=== PATIENT | female | born 1935 ===

== ENCOUNTER 2018-11-18 17:58 | Emergency (ER) | payer MEDICARE, OTHER ==
[2018-11-18 18:07] VITALS: BP 126/74; PULSE 86; RESP 18; TEMP 98.4; O2SAT 100
--- NOTE | 2018-11-18 18:40 | C.PDOC ---
History Of Present Illness 83 y/o female presents to the ER complaining of right ear pain which has been present for the past 4 days. Patient rates the pain 8/10. Patient reports that she went to her PMD and he prescribed her Ciprodex ear drops. She notes that she used the ear drops x 1 today. She states that she still has pain which is constant and throbbing.Denies having fever,chills,headache,dizziness,sore throat, neck pain, neck stiffness, CP, and SOB. Time Seen by Provider: 11/18/18 18:19 Chief Complaint (Nursing): ENT Problem History Per: Patient History/Exam Limitations: no limitations Onset/Duration Of Symptoms: Days Current Symptoms Are (Timing): Still Present Severity: Moderate Past Medical History Reviewed: Historical Data, Nursing Documentation, Vital Signs Vital Signs: Last Vital Signs Temp 98.4 F 11/18/18 18:04 Pulse 86 11/18/18 18:04 Resp 18 11/18/18 18:04 BP 126/74 11/18/18 18:04 Pulse Ox 100 11/18/18 18:04 - Medical History PMH: Asthma, Diabetes Surgical History: Cholecystectomy Family History: States: No Known Family Hx - Social History Hx Tobacco Use: No Hx Alcohol Use: No Hx Substance Use: No - Immunization History Hx Tetanus Toxoid Vaccination: Yes Hx Influenza Vaccination: Yes Hx Pneumococcal Vaccination: (not sure) Review Of Systems Except As Marked, All Systems Reviewed And Found Negative. Constitutional: Negative for: Fever, Chills ENT: Positive for: Ear Pain (right ear pain). Negative for: Throat Pain Cardiovascular: Negative for: Chest Pain Respiratory: Negative for: Shortness of Breath Musculoskeletal: Negative for: Neck Pain Neurological: Negative for: Headache Physical Exam - Physical Exam Appears: Non-toxic, No Acute Distress Skin: Normal Color, Warm, Dry Head: Atraumatic, Normacephalic Eye(s): bilateral: Normal Inspection Ear(s): Left: Normal, Right: Other (canal inflamed,external ear is not visible, no periauricular and/or postauricular tenderness ) Nose: Normal Oral Mucosa: Moist Throat: Normal, No Erythema, No Exudate Neck: Supple Chest: Symmetrical Cardiovascular: Rhythm Regular Respiratory: Normal Breath Sounds, No Rales, No Rhonchi, No Wheezing Neurological/Psych: Oriented x3, Normal Speech ED Course And Treatment O2 Sat by Pulse Oximetry: 100 (RA) Pulse Ox Interpretation: Normal Medical Decision Making Medical Decision Making: Plan: --Motrin PO Disposition Counseled Patient/Family Regarding: Need For Followup, Rx Given - Disposition Referrals: Harrison Hardin MD [Staff Provider] - Disposition: HOME/ ROUTINE Disposition Time: 18:37 Condition: GUARDED Prescriptions: Azithromycin 250 mg PO DAILY #6 tablet Ibuprofen [Motrin] 400 mg PO TID #24 tab traMADol [Ultram] 25 mg PO BID #8 tab Instructions: Outer Ear Infection (DC) Forms: [employer] ([place]) - POA Present On Arrival: None - Clinical Impression Clinical Impression: Otitis externa - Scribe Statement The provider has reviewed the documentation as recorded by the Scribe Karen Reddy Provider Attestation: All medical record entries made by the Scribe were at my direction and personally dictated by me. I have reviewed the chart and agree that the record accurately reflects my personal performance of the history, physical exam, medical decision making, and the department course for this patient. I have also personally directed, reviewed, and agree with the discharge instructions and disposition.
== END 2018-11-18 19:05 | disposition home or self-care (01) ==
LOC: C.ER 17:58
DX: H60.91 Unspecified otitis externa, right ear (principal)

== ENCOUNTER 2018-11-20 23:17 | Inpatient (IN) | payer MEDICARE, OTHER | END 2018-11-26 16:55 | disposition home or self-care (01) | DRG 153 | LOC: C.ER 23:17 → C.6T 11-21 02:15 | DX: H70.001 Acute mastoiditis without complications, right ear (principal); E78.5 Hyperlipidemia, unspecified; E11.9 Type 2 diabetes mellitus without complications; H91.90 Unspecified hearing loss, unspecified ear; I10 Essential (primary) hypertension; J45.909 Unspecified asthma, uncomplicated; L40.9 Psoriasis, unspecified; K21.9 Gastro-esophageal reflux disease without esophagitis; H60.20 Malignant otitis externa, unspecified ear ==

== ENCOUNTER 2018-12-23 10:20 | Inpatient (IN) | payer MEDICARE, OTHER | END 2018-12-26 18:45 | disposition home or self-care (01) | LOC: C.ER 10:20 → C.9E 12:45 → C.3T 13:01 ==

== ENCOUNTER 2018-12-31 09:50 | Inpatient (IN) | payer MEDICARE, OTHER ==
--- NOTE | 2018-12-31 10:29 | C.PDOC ---
History Of Present Illness Patient is a 83 year old female who presents to the ED with her family for evaluation of a swollen and red right arm for the past 2 days after a PICC line was inserted last week for IV antibiotics for Otitis Externa. Patient's PMD is . Denies any fever or chills. Time Seen by Provider: 12/31/18 10:25 Chief Complaint (Nursing): Upper Extremity Problem/Injury History Per: Patient, Family History/Exam Limitations: no limitations Current Symptoms Are (Timing): Still Present Severity: Mild Recent travel outside of the [place]: No Additional History Per: Patient Past Medical History Reviewed: Historical Data, Nursing Documentation, Vital Signs Vital Signs: Last Vital Signs Temp 97.6 F 12/31/18 09:55 Pulse 107 H 12/31/18 09:55 Resp 18 12/31/18 09:55 BP 129/74 12/31/18 09:55 Pulse Ox 99 12/31/18 09:55 Primary Care Provider: Harrison Hardin - Medical History PMH: Anxiety, Asthma, Diabetes, HTN Denies: Deep Vein Thrombosis Surgical History: Cholecystectomy Denies: Pacemaker - [facility] Procedures EXCISION OF RIGHT EXTERNAL AUDITORY CANAL, ENDO, DIAGN (12/24/18) INSERTION OF INFUSION DEV INTO SUP VENA CAVA, PERC APPROACH (12/24/18) Family History: States: Unknown Family Hx - Social History Hx Tobacco Use: No Hx Alcohol Use: No Hx Substance Use: No - Immunization History Hx Tetanus Toxoid Vaccination: Yes Hx Influenza Vaccination: Yes Hx Pneumococcal Vaccination: (not sure) Review Of Systems Constitutional: Negative for: Fever, Chills Musculoskeletal: Positive for: Arm Pain (right arm swollen and red) Physical Exam - Physical Exam Appears: Non-toxic, No Acute Distress Skin: Warm, Dry Head: Atraumatic, Normacephalic Eye(s): bilateral: Normal Inspection Oral Mucosa: Moist Neck: Normal ROM, Supple Chest: Symmetrical, No Deformity Cardiovascular: Rhythm Regular, No Murmur Respiratory: Normal Breath Sounds, No Rales, No Rhonchi, No Wheezing Gastrointestinal/Abdominal: Soft, No Tenderness Extremity: Swelling (right upper arm swollen and erythematous ) Pulses: Left Radial: Normal, Right Radial: Normal Gait: Steady ED Course And Treatment - Laboratory Results Result Diagrams: 12/31/18 11:12 05/29/19 11:12 Lab Interpretation: No Acute Changes ECG: Interpreted By Me ECG Rhythm: Sinus Rhythm ECG Interpretation: Normal Rate From EC O2 Sat by Pulse Oximetry: 99 (on RA) Pulse Ox Interpretation: Normal - Radiology CXR: Interpreted by Me CXR Interpretation: Yes: No Acute Disease - Other Rad CXR X-Ray: Viewed By Me, Read By Radiologist Interpretation: Chest x-ray two views. HISTORY: Shortness of breath. Comparison: 08/20/2013. Findings: Mild linear atelectasis at the left lung base. Right PICC line with tip extending to the mid right SVC. Biapical pleural thickening with upper lobe granulomatous changes. No gross focal infiltrate or effusion. Atherosclerotic calcification at the aortic knob. Surgical clips in the upper abdomen. Degenerative changes in the spine and shoulders. Impression: Mild linear atelectasis at the left lung base. Right PICC line with tip extending to the mid right SVC. Biapical pleural thickening with upper lobe granulomatous changes. No gross focal infiltrate or effusion. Atherosclerotic calcification at the aortic knob. Surgical clips in the upper abdomen. Progress Note: Doppler right Upper arm (+) DVT. Case discussed with Dr Hardin and agrees with admission and Heparin. PICC line removed Reassessment Condition: Unchanged - Physician Consult Information Physician Contacted: Harrison Hardin Outcome Of Conversation: admit Medical Decision Making Medical Decision Making: Plan: CXR EKG Labs Blood Culture Duplex Scan UA Spoke to PICC nurse who states the PICC line should come out. Disposition Discussed With .: Harrison Hardin Doctor Will See Patient In The: Hospital - Disposition Disposition: HOSPITALIZED Disposition Time: 15:00 Condition: GOOD - POA Present On Arrival: None - Clinical Impression Clinical Impression: Cellulitis, DVT of axillary vein, acute - PA / ANIMAL RIDE ATTENDANT / Resident Statement MD/DO has reviewed & agrees with the documentation as recorded. - Scribe Statement The provider has reviewed the documentation as recorded by the Shara Fenton All medical record entries made by the Shara were at my direction and personally dictated by me. I have reviewed the chart and agree that the record accurately reflects my personal performance of the history, physical exam, medical decision making, and the department course for this patient. I have also personally directed, reviewed, and agree with the discharge instructions and disposition. Decision To Admit - Pt Status Changed To: Hospital Disposition Of: Inpatient - Admit Certification Admit to Inpatient:: After my assessment, the patient will require hospitalization for at least two midnights. This is because of the severity of symptoms shown, intensity of services needed, and/or the medical risk in this patient being treated as an outpatient. - InPatient: Physician Admission Certification: I certify that this patient requires 2 or more midnights of care for the following reason:: DVT right arm - . Bed Request Type: Regular Admitting Physician: Harrison Hardin Patient Diagnosis: Cellulitis, DVT of axillary vein, acute
--- NOTE | 2018-12-31 11:15 | RAD ---
Chest x-ray two views HISTORY: Shortness of breath. Comparison: 08/20/2013 Findings: Mild linear atelectasis at the left lung base. Right PICC line with tip extending to the mid right SVC. Biapical pleural thickening with upper lobe granulomatous changes. No gross focal infiltrate or effusion. Atherosclerotic calcification at the aortic knob. Surgical clips in the upper abdomen. Degenerative changes in the spine and shoulders. Impression: Mild linear atelectasis at the left lung base. Right PICC line with tip extending to the mid right SVC. Biapical pleural thickening with upper lobe granulomatous changes. No gross focal infiltrate or effusion. Atherosclerotic calcification at the aortic knob. Surgical clips in the upper abdomen.
[2018-12-31 11:27] LABS: BASO % 0.3 % (0.0-2.0); HEMOGLOBIN 12.3 g/dL (11.0-16.0); LYMPH # 0.8 K/uL (1.0-4.3); LYMPH % 13.3 % (20.0-40.0); MEAN CELL VOLUME 85.5 fL (81.0-99.0); MEAN CORPUSCULAR HEMOGLOBIN 28.4 pg (27.0-31.0); MEAN CORPUSCULAR HGB CONC 33.3 g/dL (33.0-37.0); MONO # 0.6 K/uL (0.0-0.8); MONO % 9.9 % (0.0-10.0); NEUT # 4.4 K/uL (1.8-7.0); NEUT % 76.5 % (50.0-75.0); NRBC % 0.1 % (0.0-2.0); RBC 4.33 Mil/uL (3.80-5.20); RED CELL DISTRIBUTION WIDTH 15.5 % (11.5-14.5); WHITE BLOOD COUNT 5.8 K/uL (4.8-10.8)
[2018-12-31] MEDS ORDERED: Heparin25000 units/250ml 1/2NS 25,000 UNITS/250 ML BAG IV STA ×3 (11:33→13:10)
[2018-12-31 12:11] LABS: ALB/GLOB RATIO 1.2 (1.0-2.1); ALBUMIN 4.1 g/dL (3.5-5.0); ALT/SGPT 14 U/L (9-52); AST/SGOT 27 U/L (14-36); BLOOD UREA NITROGEN 19 mg/dL (7-17); CALCIUM 9.8 mg/dl (8.6-10.4); GFR NON-AFRICAN AMERICAN > 60
[2018-12-31] MEDS ORDERED: Dextrose 50% SYRINGE Inj (50 ml) IV PRN (14:53)
[2018-12-31] MEDS ORDERED: Cefepime (Maxipime) 1 g Inj IVPB SCH (15:00)
[2018-12-31 15:28] LABS: INR 1.1; PROTHROMBIN TIME 12.5 SECONDS (9.7-12.2)
[2018-12-31] MEDS ORDERED: Glucagon Recombinant 1 mg Inj IM PRN (15:38)
[2018-12-31 15:40] LABS: PARTIAL THROMBOPLASTIN TIME > 400.0 SECONDS (21-34)
--- NOTE | 2018-12-31 15:44 | VASCLAB ---
Date of service: 12/31/2018 PROCEDURE: Upper Extremity Venous Duplex Exam HISTORY: Edema, Right arm swelling. PRIORS: None. TECHNIQUE: Bilateral upper extremity, internal jugular, subclavian, axillary, brachial, ulnar, radial, basilic and upper cephalic veins were evaluated. Flow was assessed with color Doppler, compressibility, assessment of phasic flow and augmentation response. Report prepared by MITUL Gann FINDINGS: RIGHT: 1. Internal Jugular: 1.1. Compressibility - Fully compressible: Thrombus - None : Flow - Phasic: Augmentation -Normal: Reflux - None. 2. Subclavian: 2.1. Compressibility - Incompressible: Thrombus - Acute : Flow - Absent 3. Axillary: 3.1. Compressibility - Partial: Thrombus - Acute : Flow - Reduced 4. Brachial: 4.1. Unable to examine w/PICC line and dressing. 5. Ulnar: 5.1. Compressibility - Fully compressible: Thrombus - None: Flow - Phasic: Augmentation -Normal: Reflux - None. 6. Radial: 6.1. Compressibility - Fully compressible: Thrombus - None: Flow - Phasic: Augmentation - Normal: Reflux - None. 7. Cephalic: 7.1. Compressibility - Incompressible: Thrombus - Acute: Flow - Absent (upper arm) 8. Basilic: (forearm) 8.1. Compressibility - Fully compressible: Thrombus - None: Flow - Phasic: Augmentation -Normal: Reflux - None. LEFT: 1. Internal Jugular: 1.1. The left IJV is not identified. 2. Subclavian: 2.1. Compressibility - Fully compressible: Thrombus - None : Flow - Phasic: Augmentation -Normal: Reflux - None. 3. Axillary: 3.1. Compressibility - Fully compressible: Thrombus - None : Flow - Phasic: Augmentation -Normal: Reflux - None. 4. Brachial: 4.1. Compressibility - Fully compressible: Thrombus - None: Flow - Phasic: Augmentation -Normal: Reflux - None. 5. Ulnar: 5.1. Compressibility - Fully compressible: Thrombus - None: Flow - Phasic: Augmentation -Normal: Reflux - None. 6. Radial: 6.1. Compressibility - Fully compressible: Thrombus - None: Flow - Phasic: Augmentation - Normal: Reflux - None. 7. Cephalic: 7.1. Compressibility - Fully compressible: Thrombus - None: Flow - Phasic: Augmentation -Normal: Reflux - None. 8. Basilic: 8.1. Compressibility - Fully compressible: Thrombus - None: Flow - Phasic: Augmentation -Normal: Reflux - None. OTHER FINDINGS: Right: Acute thrombus formation surrounding the piccline in the subclavian and axillary veins. Non compressible right upper cephalic vein, however compressible in the forearm. Findings were reported to INES Maloney in the E. [facility] at 11:30 a.m. IMPRESSION: Right: Acute deep vein thrombosis of the right subclavian and axillary veins. Superficial phlebitis of the right upper arm cephalic vein. Left: No evidence of vein thrombosis of the left upper extremity with excellent venous flow, as visualized.
[2018-12-31] MEDS: Cefepime IV 1 gm in Dextrose 1 GM/50 ML BAG IVPB SCH (16:26)
[2018-12-31] MEDS: (Novolog) Insulin Aspart, Recombinant 100 u/ml 10 ml vial SC SCH ×2 (17:12→22:04)
[2018-12-31] MEDS: Oxycodone/Acetaminophen 5/325 mg Tab PO SCH (17:16)
[2018-12-31] MEDS ORDERED: Budesonide 0.25 mg/2 ml Inhal Susp UD INH SCH (20:00)
[2018-12-31] MEDS: Rosuvastatin Calcium 2.5 mg Tab PO SCH (21:03)
--- NOTE | 2018-12-31 22:32 | CP.PCM.HP ---
Present on Admission - Present on Admission Any Indicators Present on Admission: Yes History of DVT/PE: No History of Uncontrolled Diabetes: Yes Past Patient History - Infectious Disease Hx of Infectious Diseases: None - Past Medical History & Family History Past Medical History?: Yes - Past Social History Smoking Status: Never Smoked - CARDIAC Hx Hypertension: Yes Hx Pacemaker: No - PULMONARY Hx Asthma: Yes - ENDOCRINE/METABOLIC Hx Diabetes Mellitus Type 2: Yes - HEMATOLOGICAL/ONCOLOGICAL Hx Cancer: Yes - MUSCULOSKELETAL/RHEUMATOLOGICAL Hx Falls: No - PSYCHIATRIC Hx Anxiety: Yes Hx Substance Use: No - SURGICAL HISTORY Hx Cholecystectomy: Yes - ANESTHESIA Hx Anesthesia: Yes Hx Anesthesia Reactions: No Hx Malignant Hyperthermia: No Meds Allergies/Adverse Reactions: Allergies Allergy/AdvReac Type Severity Reaction Status Date / Time FISH Allergy RASH Verified 12/23/18 10:52 iodine Allergy RASH Verified 12/23/18 10:52 Sulfa (Sulfonamide Allergy RASH Verified 12/23/18 10:52 Antibiotics) Results - Vital Signs Recent Vital Signs: Last Vital Signs Temp 98.6 F 12/31/18 16:47 Pulse 94 H 12/31/18 16:47 Resp 20 12/31/18 16:47 BP 121/71 12/31/18 16:47 Pulse Ox 94 L 12/31/18 16:47 - Labs Result Diagrams: 12/31/18 11:12 12/31/18 11:12 Labs: Laboratory Results - last 24 hr 12/31/18 12/31/18 12/31/18 11:12 11:12 13:30 WBC 5.8 D RBC 4.33 Hgb 12.3 Hct 37.0 MCV 85.5 MCH 28.4 MCHC 33.3 RDW 15.5 H Plt Count 57 L MPV 11.0 Neut % (Auto) 76.5 H Lymph % (Auto) 13.3 L Bradley % (Auto) 9.9 Eos % (Auto) 0.0 Baso % (Auto) 0.3 Neut # (Auto) 4.4 Lymph # (Auto) 0.8 L Bradley # (Auto) 0.6 Eos # (Auto) 0.0 Baso # (Auto) 0.0 ESR 73 H PT INR APTT Sodium 135 Potassium 4.4 Chloride 104 Carbon Dioxide 21 L Anion Gap 15 BUN 19 H Creatinine 0.6 L Est GFR ( Amer) > 60 Est GFR (Non-Af Amer) > 60 POC Glucose (mg/dL) 100 Random Glucose 195 H D Calcium 9.8 Total Bilirubin 0.9 AST 27 ALT 14 Alkaline Phosphatase 41 Total Protein 7.6 Albumin 4.1 Globulin 3.4 Albumin/Globulin Ratio 1.2 12/31/18 12/31/18 12/31/18 15:04 16:57 17:35 WBC RBC Hgb Hct MCV MCH MCHC RDW Plt Count MPV Neut % (Auto) Lymph % (Auto) Bradley % (Auto) Eos % (Auto) Baso % (Auto) Neut # (Auto) Lymph # (Auto) Bradley # (Auto) Eos # (Auto) Baso # (Auto) ESR PT 12.5 H INR 1.1 APTT > 400.0 H* 105.2 H* D Sodium Potassium Chloride Carbon Dioxide Anion Gap BUN Creatinine Est GFR ( Amer) Est GFR (Non-Af Amer) POC Glucose (mg/dL) 142 H Random Glucose Calcium Total Bilirubin AST ALT Alkaline Phosphatase Total Protein Albumin Globulin Albumin/Globulin Ratio 12/31/18 21:18 WBC RBC Hgb Hct MCV MCH MCHC RDW Plt Count MPV Neut % (Auto) Lymph % (Auto) Bradley % (Auto) Eos % (Auto) Baso % (Auto) Neut # (Auto) Lymph # (Auto) Bradley # (Auto) Eos # (Auto) Baso # (Auto) ESR PT INR APTT Sodium Potassium Chloride Carbon Dioxide Anion Gap BUN Creatinine Est GFR ( Amer) Est GFR (Non-Af Amer) POC Glucose (mg/dL) 213 H Random Glucose Calcium Total Bilirubin AST ALT Alkaline Phosphatase Total Protein Albumin Globulin Albumin/Globulin Ratio
[2019-01-01] MEDS: Oxycodone/Acetaminophen 5/325 mg Tab PO SCH ×5 (00:43→23:39)
[2019-01-01] MEDS: Cefepime IV 1 gm in Dextrose 1 GM/50 ML BAG IVPB SCH ×2 (03:47→16:55)
--- NOTE | 2019-01-01 06:25 | HP ---
CHIEF COMPLAINT: Right upper extremity pain, swelling x2 days. HISTORY OF PRESENT ILLNESS: This is an 83-year-old female, well known to me with history of malignant otitis externa. She is on long-term antibiotics for 6 weeks with Infectious Disease; and on the day of admission, she came to the emergency room because she had a PICC line done 3 days ago in the hospital. After that, she was discharged. After that, she developed swelling of right upper extremity. Her right upper extremity is therefore swollen and warm, and the patient came to the emergency room. The patient denies any trauma. She denies any history of mechanical manipulation of the PICC line. The PICC line was in the right upper extremity. She denies any fever, chills, or rigors. She denies any redness or swelling. She denies any fever. She denies any polyuria, polydipsia, or polyphagia. She denies any history of hematuria or polyuria. She denies any sneezing, itchy eyes, or itchy nose. There is no history of cough, sore throat, or runny nose. There is no history of trauma, fall, loss of consciousness. PAST MEDICAL HISTORY: Malignant otitis externa, type 2 diabetes, hypertension, and hyperlipidemia. SOCIAL HISTORY: Nonsmoker, non-ETOH user. MEDICATIONS: Current medications at home are Percocet, Merrem, Pravachol, lisinopril, Janumet, Amaryl, Advair, Nexium, Jardiance. PHYSICAL EXAMINATION: GENERAL: An elderly female, in no acute distress, in mild pain in the right upper extremity. VITAL SIGNS: Blood pressure 156/80, pulse 80, respiratory rate 20, temperature 98. SKIN: The patient has dry, cold skin in the right upper extremity with no bruises, no purpura. HEENT: Atraumatic, normocephalic. Negative pallor. Negative jaundice. Extraocular movements are intact. NECK: Supple. No JVD. No lymph node. No thyromegaly. No carotid bruit. CHEST WALL: Bilateral symmetrical expansion. No tenderness. No deformity. BREASTS: No masses, no discharge. LUNGS: Bilaterally clear. No rales. No rhonchi. CARDIOVASCULAR SYSTEM: S1, S2 regular. No heave. No thrill. ABDOMEN: Soft, nontender. Bowel sounds are positive. RECTAL: No masses. No bleed. EXTREMITIES: No clubbing, cyanosis, or edema. Right upper extremity, as above. CENTRAL NERVOUS SYSTEM: Awake, alert, oriented x3. Cranial nerves II through XII are normal. Power 5/5 x4. Plantars are downgoing. ASSESSMENT: 1. Deep venous thrombosis of the right upper extremity due to peripherally inserted central catheter line. Discontinue PICC line and start the patient on Xarelto after the patient was given heparin. 2. Type 2 diabetes. 3. Hypertension. 4. Malignant otitis externa. PLAN: Continue antibiotics, continue Xarelto, medical management. Monitor the patient. Harrison Hardin MD
[2019-01-01] MEDS: (Novolog) Insulin Aspart, Recombinant 100 u/ml 10 ml vial SC SCH ×4 (07:31→21:31)
[2019-01-01] MEDS: Arformoterol 15 mcg/2 ml Inh Sol INH SCH ×2 (09:07→19:53)
[2019-01-01] MEDS: Saccharomyces Boulardi 250 mg Cap PO SCH (09:55)
[2019-01-01] MEDS: Rosuvastatin Calcium 2.5 mg Tab PO SCH (21:08)
--- NOTE | 2019-01-01 22:45 | CP.PCM.PN ---
Subjective - Date & Time of Evaluation Date of Evaluation: 01/01/19 Time of Evaluation: 09:40 - Subjective Subjective: dict Objective - Vital Signs/Intake and Output Vital Signs (last 24 hours): Temp Pulse Resp BP Pulse Ox 98.0 F 93 H 20 113/69 96 01/01/19 07:00 01/01/19 07:00 01/01/19 07:00 01/01/19 07:00 01/01/19 07:00 Intake and Output: 01/01/19 01/02/19 18:59 06:59 Intake Total 500 Balance 500 - Medications Medications: Current Medications Arformoterol Tartrate (Brovana) 15 mcg INH RQ12@1000,2200 [facility] Last Admin: 01/01/19 19:53 Dose: 15 mcg Budesonide (Pulmicort Respules) 0.25 mg INH RQ12 [facility] Dextrose (Dextrose 50% Inj) 0 ml IV STAT PRN; Protocol PRN Reason: Hypoglycemia Protocol Dextrose (Glutose 15) 0 gm PO ONCE PRN; Protocol PRN Reason: Hypoglycemia Protocol Glimepiride (Amaryl) 2 mg PO BIDBS [facility] Last Admin: 01/01/19 16:55 Dose: 2 mg Glucagon (Glucagen Diagnostic Kit) 0 mg IM STAT PRN; Protocol PRN Reason: Hypoglycemia Protocol Dextrose (Dextrose 5% In Water 1000 Ml) 1,000 mls @ 0 mls/hr IV .Q0M PRN; Protocol PRN Reason: Hypoglycemia Protocol Cefepime HCl (Maxipime Iv 1 Gm Premix) 1 gm in 50 mls @ 100 mls/hr IVPB Q12H [facility] Last Admin: 01/01/19 16:55 Dose: 100 mls/hr Insulin Aspart (Novolog) 0 unit SC ACHS [facility]; Protocol Last Admin: 01/01/19 21:31 Dose: Not Given Lisinopril (Zestril) 5 mg PO DAILY [facility] Last Admin: 01/01/19 09:55 Dose: 5 mg Metformin HCl (Glucophage) 500 mg PO BIDCC [facility] Last Admin: 01/01/19 16:55 Dose: 500 mg Oxycodone/Acetaminophen (Percocet 5/325 Mg Tab) 1 tab PO Q6 [facility] Stop: 01/03/19 18:01 Last Admin: 01/01/19 17:13 Dose: Not Given Rivaroxaban (Xarelto) 15 mg PO BID [facility] Last Admin: 01/01/19 17:12 Dose: 15 mg Rosuvastatin Calcium (Crestor) 2.5 mg PO HS [facility] Last Admin: 01/01/19 21:08 Dose: 2.5 mg Saccharomyces Boulardii (Florastor) 250 mg PO DAILY [facility] Last Admin: 01/01/19 09:55 Dose: 250 mg Sitagliptin Phosphate (Januvia) 50 mg PO BID [facility] Last Admin: 01/01/19 17:12 Dose: 50 mg - Labs Labs: 12/31/18 11:12 12/31/18 11:12 PT 12.5 SECONDS (9.7-12.2) H 12/31/18 15:04 INR 1.1 12/31/18 15:04 APTT 105.2 SECONDS (21-34) H* D 12/31/18 17:35
--- NOTE | 2019-01-02 02:02 | PN ---
DATE: 01/01/2019 SUBJECTIVE: The patient is on Xarelto. She is tolerating well. No fever. No chills. PHYSICAL EXAMINATION: VITAL SIGNS: Blood pressure 113/69, pulse 93, respiratory rate 20, and temperature 98. LUNGS: Clear. CARDIOVASCULAR SYSTEM: S1 and S2, regular. ABDOMEN: Soft. ASSESSMENT: 1. Malignant otitis externa. 2. Deep venous thrombosis, right upper extremity. 3. Hypertension. 4. Diabetes. PLAN: The patient's biopsy is inconclusive as I speak to ENT. The patient might need empiric antibiotic therapy. Monitor the patient. Harrison Hardin MD
[2019-01-02] MEDS: Cefepime IV 1 gm in Dextrose 1 GM/50 ML BAG IVPB SCH ×2 (03:37→15:59)
[2019-01-02] MEDS: Oxycodone/Acetaminophen 5/325 mg Tab PO SCH ×3 (05:40→17:59)
[2019-01-02] MEDS: (Novolog) Insulin Aspart, Recombinant 100 u/ml 10 ml vial SC SCH ×4 (07:28→22:20)
[2019-01-02 08:48] LABS: SQUAMOUS EPITHIAL 4 /hpf (0-5); URINE BACTERIA OCC (<OCC); URINE BILIRUBIN NEGATIVE (NEGATIVE); URINE BLOOD 1+ (NEGATIVE); URINE CLARITY Hazy (Clear); URINE COLOR Yellow (YELLOW); URINE GLUCOSE (UA) 3+ mg/dL (Normal); URINE LEUKOCYTE ESTERASE 1+ Leu/uL (Negative); URINE PROTEIN NEGATIVE (NEGATIVE); URINE UROBILINOGEN NORMAL mg/dL (0.2-1.0)
[2019-01-02] MEDS: Arformoterol 15 mcg/2 ml Inh Sol INH SCH ×2 (09:08→19:44)
[2019-01-02] MEDS: Saccharomyces Boulardi 250 mg Cap PO SCH (09:32)
[2019-01-02 17:58] VITALS: RESP 20
[2019-01-02] MEDS: Rosuvastatin Calcium 2.5 mg Tab PO SCH (21:18)
[2019-01-03] MEDS: Oxycodone/Acetaminophen 5/325 mg Tab PO SCH ×4 (00:53→17:55)
--- NOTE | 2019-01-03 04:43 | CP.PCM.PN ---
Subjective - Date & Time of Evaluation Date of Evaluation: 01/02/19 Time of Evaluation: 08:30 - Subjective Subjective: dict Objective - Vital Signs/Intake and Output Vital Signs (last 24 hours): Temp Pulse Resp BP Pulse Ox 98.0 F 87 20 123/68 99 01/03/19 00:00 01/03/19 00:00 01/03/19 00:00 01/03/19 00:00 01/03/19 00:00 Intake and Output: 01/02/19 01/03/19 18:59 06:59 Intake Total 500 Balance 500 - Medications Medications: Current Medications Arformoterol Tartrate (Brovana) 15 mcg INH RQ12@1000,2200 [facility] Last Admin: 01/02/19 19:44 Dose: 15 mcg Budesonide (Pulmicort Respules) 0.25 mg INH RQ12 [facility] Dextrose (Dextrose 50% Inj) 0 ml IV STAT PRN; Protocol PRN Reason: Hypoglycemia Protocol Dextrose (Glutose 15) 0 gm PO ONCE PRN; Protocol PRN Reason: Hypoglycemia Protocol Glimepiride (Amaryl) 2 mg PO BIDBS [facility] Last Admin: 01/02/19 17:10 Dose: 2 mg Glucagon (Glucagen Diagnostic Kit) 0 mg IM STAT PRN; Protocol PRN Reason: Hypoglycemia Protocol Dextrose (Dextrose 5% In Water 1000 Ml) 1,000 mls @ 0 mls/hr IV .Q0M PRN; Protocol PRN Reason: Hypoglycemia Protocol Cefepime HCl (Maxipime Iv 1 Gm Premix) 1 gm in 50 mls @ 100 mls/hr IVPB Q12H [facility] Last Admin: 01/02/19 15:59 Dose: 100 mls/hr Insulin Aspart (Novolog) 0 unit SC ACHS [facility]; Protocol Last Admin: 01/02/19 22:20 Dose: Not Given Lisinopril (Zestril) 5 mg PO DAILY [facility] Last Admin: 01/02/19 09:33 Dose: 5 mg Metformin HCl (Glucophage) 500 mg PO BIDCC [facility] Last Admin: 01/02/19 17:10 Dose: 500 mg Oxycodone/Acetaminophen (Percocet 5/325 Mg Tab) 1 tab PO Q6 [facility] Stop: 01/03/19 18:01 Last Admin: 01/02/19 17:59 Dose: Not Given Rivaroxaban (Xarelto) 15 mg PO BID [facility] Last Admin: 01/02/19 17:09 Dose: 15 mg Rosuvastatin Calcium (Crestor) 2.5 mg PO HS [facility] Last Admin: 01/02/19 21:18 Dose: 2.5 mg Saccharomyces Boulardii (Florastor) 250 mg PO DAILY [facility] Last Admin: 01/02/19 09:32 Dose: 250 mg Sitagliptin Phosphate (Januvia) 50 mg PO BID [facility] Last Admin: 01/02/19 17:09 Dose: 50 mg - Labs Labs: 12/31/18 11:12 12/31/18 11:12 PT 12.5 SECONDS (9.7-12.2) H 12/31/18 15:04 INR 1.1 12/31/18 15:04 APTT 105.2 SECONDS (21-34) H* D 12/31/18 17:35
[2019-01-03] MEDS: Cefepime IV 1 gm in Dextrose 1 GM/50 ML BAG IVPB SCH ×2 (04:54→17:19)
[2019-01-03] MEDS: (Novolog) Insulin Aspart, Recombinant 100 u/ml 10 ml vial SC SCH ×4 (07:30→22:33)
[2019-01-03] MEDS: Saccharomyces Boulardi 250 mg Cap PO SCH (09:03)
[2019-01-03] MEDS: Arformoterol 15 mcg/2 ml Inh Sol INH SCH ×2 (10:00→21:26)
--- NOTE | 2019-01-03 12:48 | CARD ---
APPROVED REPORT Date of service: 12/31/2018 EKG Measurement Heart [id number] <Conclusion> Normal sinus rhythm Normal ECG
--- NOTE | 2019-01-03 19:44 | CP.PCM.PN ---
Subjective - Date & Time of Evaluation Date of Evaluation: 01/03/19 Time of Evaluation: 09:40 - Subjective Subjective: dict Objective - Vital Signs/Intake and Output Vital Signs (last 24 hours): Temp Pulse Resp BP Pulse Ox 99.7 F H 85 20 120/70 98 01/03/19 16:45 01/03/19 16:45 01/03/19 16:45 01/03/19 16:45 01/03/19 16:45 - Medications Medications: Current Medications Arformoterol Tartrate (Brovana) 15 mcg INH RQ12@1000,2200 [facility] Last Admin: 01/03/19 10:00 Dose: 15 mcg Budesonide (Pulmicort Respules) 0.25 mg INH RQ12 [facility] Dextrose (Dextrose 50% Inj) 0 ml IV STAT PRN; Protocol PRN Reason: Hypoglycemia Protocol Dextrose (Glutose 15) 0 gm PO ONCE PRN; Protocol PRN Reason: Hypoglycemia Protocol Glimepiride (Amaryl) 2 mg PO BIDBS [facility] Last Admin: 01/03/19 17:18 Dose: 2 mg Glucagon (Glucagen Diagnostic Kit) 0 mg IM STAT PRN; Protocol PRN Reason: Hypoglycemia Protocol Cefepime HCl (Maxipime Iv 1 Gm Premix) 1 gm in 50 mls @ 100 mls/hr IVPB Q12H [facility] Last Admin: 01/03/19 17:19 Dose: 100 mls/hr Insulin Aspart (Novolog) 0 unit SC ACHS [facility]; Protocol Last Admin: 01/03/19 17:48 Dose: 1 units Lisinopril (Zestril) 5 mg PO DAILY [facility] Last Admin: 01/03/19 09:15 Dose: 5 mg Metformin HCl (Glucophage) 500 mg PO BIDCC [facility] Last Admin: 01/03/19 17:18 Dose: 500 mg Rivaroxaban (Xarelto) 15 mg PO BID [facility] Last Admin: 01/03/19 17:18 Dose: 15 mg Rosuvastatin Calcium (Crestor) 2.5 mg PO HS [facility] Last Admin: 01/02/19 21:18 Dose: 2.5 mg Saccharomyces Boulardii (Florastor) 250 mg PO DAILY [facility] Last Admin: 01/03/19 09:03 Dose: 250 mg Sitagliptin Phosphate (Januvia) 50 mg PO BID [facility] Last Admin: 01/03/19 17:18 Dose: 50 mg - Labs Labs: 12/31/18 11:12 12/31/18 11:12 PT 12.5 SECONDS (9.7-12.2) H 12/31/18 15:04 INR 1.1 12/31/18 15:04 APTT 105.2 SECONDS (21-34) H* D 12/31/18 17:35
[2019-01-03] MEDS: Rosuvastatin Calcium 2.5 mg Tab PO SCH (22:03)
[2019-01-04] MEDS: Cefepime IV 1 gm in Dextrose 1 GM/50 ML BAG IVPB SCH ×2 (02:59→16:15)
[2019-01-04] MEDS: (Novolog) Insulin Aspart, Recombinant 100 u/ml 10 ml vial SC SCH ×4 (07:30→21:22)
[2019-01-04] MEDS: Saccharomyces Boulardi 250 mg Cap PO SCH (09:13)
[2019-01-04] MEDS: Arformoterol 15 mcg/2 ml Inh Sol INH SCH ×2 (09:22→22:43)
--- NOTE | 2019-01-04 20:43 | PN ---
DATE: 01/03/2019 SUBJECTIVE: The patient still has ear ache. She denies any shortness of breath. No fever. No chills. The patient denies any nausea, vomiting. No cough. No sore throat. PHYSICAL EXAMINATION: VITAL SIGNS: Blood pressure is 120/70, pulse 81, respiratory rate 20, temperature 99.7. LUNGS: Clear. ABDOMEN: Soft, nontender. Bowel sounds are positive. ASSESSMENT: 1. Malignant otitis externa. 2. Diabetes. 3. Hypertension. PLAN: Antibiotics. The patient needs a PICC line and outpatient antibiotics. Monitor the patient. Harrison Hardin MD
--- NOTE | 2019-01-04 20:57 | CP.PCM.PN ---
Subjective - Date & Time of Evaluation Date of Evaluation: 01/04/19 Time of Evaluation: 08:40 - Subjective Subjective: dict Objective - Vital Signs/Intake and Output Vital Signs (last 24 hours): Temp Pulse Resp BP Pulse Ox 98.2 F 80 20 130/74 100 01/04/19 15:00 01/04/19 15:00 01/04/19 15:00 01/04/19 15:00 01/04/19 15:00 Intake and Output: 01/04/19 01/05/19 18:59 06:59 Intake Total 480 Balance 480 - Medications Medications: Current Medications Arformoterol Tartrate (Brovana) 15 mcg INH RQ12@1000,2200 [facility]PL[facility] Last Admin: 01/04/19 09:22 Dose: Not Given Budesonide (Pulmicort Respules) 0.25 mg INH RQ12 [facility] Dextrose (Dextrose 50% Inj) 0 ml IV STAT PRN; Protocol PRN Reason: Hypoglycemia Protocol Dextrose (Glutose 15) 0 gm PO ONCE PRN; Protocol PRN Reason: Hypoglycemia Protocol Glimepiride (Amaryl) 2 mg PO BIDBS REPLAC[facility] BY [facility] Last Admin: 01/04/19 16:15 Dose: 2 mg Glucagon (Glucagen Diagnostic Kit) 0 mg IM STAT PRN; Protocol PRN Reason: Hypoglycemia Protocol Cefepime HCl (Maxipime Iv 1 Gm Premix) 1 gm in 50 mls @ 100 mls/hr IVPB Q12H [facility]PLAC[facility] Last Admin: 01/04/19 16:15 Dose: 100 mls/hr Insulin Aspart (Novolog) 0 unit SC ACHS [facility]PL[facility]; Protocol Last Admin: 01/04/19 17:16 Dose: 2 units Lisinopril (Zestril) 5 mg PO DAILY [facility] Last Admin: 01/04/19 09:15 Dose: 5 mg Metformin HCl (Glucophage) 500 mg PO BIDCC REPLACED BY [facility] Last Admin: 01/04/19 16:15 Dose: 500 mg Rivaroxaban (Xarelto) 15 mg PO BID [facility] Last Admin: 01/04/19 17:16 Dose: 15 mg Rosuvastatin Calcium (Crestor) 2.5 mg PO HS [facility]PLAC[facility] BY [facility] Last Admin: 01/03/19 22:03 Dose: 2.5 mg Saccharomyces Boulardii (Florastor) 250 mg PO DAILY [facility]PL[facility] Last Admin: 01/04/19 09:13 Dose: 250 mg Sitagliptin Phosphate (Januvia) 50 mg PO BID [facility] Last Admin: 01/04/19 17:16 Dose: 50 mg - Labs Labs: 12/31/18 11:12 12/31/18 11:12 PT 12.5 SECONDS (9.7-12.2) H 12/31/18 15:04 INR 1.1 12/31/18 15:04 APTT 105.2 SECONDS (21-34) H* D 12/31/18 17:35
[2019-01-04] MEDS: Rosuvastatin Calcium 2.5 mg Tab PO SCH (21:32)
--- NOTE | 2019-01-05 00:19 | PN ---
DATE: 01/04/2019 SUBJECTIVE: The patient is feeling better, afebrile. No shortness of breath. No chest pain. No nausea or vomiting. The patient is for PICC line in the a.m. PHYSICAL EXAMINATION: VITAL SIGNS: Blood pressure 130/74, pulse 80, respiratory rate 20, and temperature 98.2. LUNGS: Clear. CARDIOVASCULAR SYSTEM: S1 and S2, regular. ABDOMEN: Soft. ASSESSMENT: 1. Malignant otitis externa. 2. Diabetes. 3. Hypertension. PLAN: PICC line and then antibiotics. Monitor the patient. Harrison Hardin MD
[2019-01-05] MEDS: Cefepime IV 1 gm in Dextrose 1 GM/50 ML BAG IVPB SCH ×2 (04:40→17:45)
[2019-01-05] MEDS: (Novolog) Insulin Aspart, Recombinant 100 u/ml 10 ml vial SC SCH ×3 (08:47→17:45)
[2019-01-05] MEDS: Saccharomyces Boulardi 250 mg Cap PO SCH (09:39)
--- NOTE | 2019-01-05 10:20 | PN ---
DATE: 01/03/2019 SUBJECTIVE: The patient continues to have purulent discharge from the ear, she has a lot of earache. The patient's biopsy of the ear is nonconclusive. No fever. The patient is on antibiotics. Right upper extremity swelling is there. She is on Xarelto and she is tolerating it well. She denies any fever or chills. No nausea or vomiting. PHYSICAL EXAMINATION: VITAL SIGNS: Blood pressure is 128/57, pulse 92, respiratory rate 20 and temperature 97.8. LUNGS: Clear. No rales. No rhonchi. CARDIOVASCULAR: S1 and S2, regular. ABDOMEN: Soft and nontender. Bowel sounds positive. EXTREMITIES: Right upper extremity, no edema. ASSESSMENT: 1. Right upper extremity deep venous thrombosis due to peripherally inserted central catheter line, status post peripherally inserted central catheter line . She is on Xarelto. 2. Poor IV access. The patient will need peripherally inserted central catheter line. 3. Malignant otitis, IV cefepime. PLAN: The patient will need 6 weeks of cefepime given the patient's inconclusive ear biopsy, so we will insert a PICC line and the patient will go home on antibiotics for 5 more weeks. Monitor the patient. Harrison Hardin MD
--- NOTE | 2019-01-05 13:00 | RAD ---
Date of service: 01/05/2019 HISTORY: check picc line placement COMPARISON: Chest radiograph dated 12/31/2018. TECHNIQUE: 1 view obtained. FINDINGS: LUNGS: Left basilar atelectasis versus infiltrate. PLEURA: No significant pleural effusion identified, no pneumothorax apparent. CARDIOVASCULAR: Aortic atherosclerotic calcifications. Cardiomediastinal silhouette stably enlarged. OSSEOUS STRUCTURES: Unchanged. VISUALIZED UPPER ABDOMEN: Right upper quadrant surgical clips. OTHER FINDINGS: Removal of right upper extremity PICC. New left upper extremity PICC with catheter tip at the cavoatrial junction. IMPRESSION: Removal of right upper extremity PICC. New left upper extremity PICC in satisfactory position. Left basilar atelectasis versus infiltrate.
[2019-01-05 16:33] VITALS: BP 127/67; PULSE 81; TEMP 98.2; O2SAT 99
[2019-01-05] MEDS ORDERED: Pneumococcal 23-Valent Vaccine IM ONE (16:44)
--- NOTE | 2019-01-05 16:47 | CP.PCM.PN ---
Subjective - Date & Time of Evaluation Date of Evaluation: 01/05/19 Time of Evaluation: 16:46 - Subjective Subjective: PATIENT SEEN AND EXAMINED AT THE BEDSIDE Objective - Vital Signs/Intake and Output Vital Signs (last 24 hours): Temp Pulse Resp BP Pulse Ox 98.2 F 81 20 127/67 99 01/05/19 16:32 01/05/19 16:32 01/05/19 16:32 01/05/19 16:32 01/05/19 16:32 Intake and Output: 01/05/19 01/05/19 06:59 18:59 Intake Total 400 Balance 400 - Medications Medications: Current Medications Arformoterol Tartrate (Brovana) 15 mcg INH RQ12@1000,2200 [facility] Last Admin: 01/04/19 22:43 Dose: Not Given Budesonide (Pulmicort Respules) 0.25 mg INH RQ12 [facility] Dextrose (Dextrose 50% Inj) 0 ml IV STAT PRN; Protocol PRN Reason: Hypoglycemia Protocol Dextrose (Glutose 15) 0 gm PO ONCE PRN; Protocol PRN Reason: Hypoglycemia Protocol Glimepiride (Amaryl) 2 mg PO BIDBS [facility] Last Admin: 01/05/19 08:43 Dose: 2 mg Glucagon (Glucagen Diagnostic Kit) 0 mg IM STAT PRN; Protocol PRN Reason: Hypoglycemia Protocol Cefepime HCl (Maxipime Iv 1 Gm Premix) 1 gm in 50 mls @ 100 mls/hr IVPB Q12H [facility] Last Admin: 01/05/19 04:40 Dose: 100 mls/hr Insulin Aspart (Novolog) 0 unit SC ACHS [facility]; Protocol Last Admin: 01/05/19 12:41 Dose: 3 units Lisinopril (Zestril) 5 mg PO DAILY [facility] Last Admin: 01/05/19 09:39 Dose: 5 mg Metformin HCl (Glucophage) 500 mg PO BIDCC [facility] Last Admin: 01/05/19 08:43 Dose: 500 mg Pneumococcal Polyvalent Vaccine (Pneumovax 23 Vaccine) 0.5 ml IM .ONCE ONE Stop: 01/05/19 16:45 Rivaroxaban (Xarelto) 15 mg PO BID [facility] Last Admin: 01/05/19 09:39 Dose: 15 mg Rosuvastatin Calcium (Crestor) 2.5 mg PO HS [facility] Last Admin: 01/04/19 21:32 Dose: 2.5 mg Saccharomyces Boulardii (Florastor) 250 mg PO DAILY [facility] Last Admin: 01/05/19 09:39 Dose: 250 mg Sitagliptin Phosphate (Januvia) 50 mg PO BID [facility] Last Admin: 01/05/19 09:39 Dose: 50 mg - Labs Labs: 12/31/18 11:12 12/31/18 11:12 PT 12.5 SECONDS (9.7-12.2) H 12/31/18 15:04 INR 1.1 12/31/18 15:04 APTT 105.2 SECONDS (21-34) H* D 12/31/18 17:35 Assessment and Plan - Assessment and Plan (Free Text) Plan: FOLLOW UP WITH DR CRISTOBAL IN HIS OFFICE CONTINUE HOME MEDICATION ORDER NEW PRESCRIPTION GIVEN XARELTO ACTIVITY TOLERATED CALL DR Bambi BAEZ OR GO TO THE EMERGENCY ROOM IF SYMPTOM RETURN OR WORSENING
--- NOTE | 2019-01-05 22:04 | CP.PCM.DIS ---
Provider - Provider Date of Admission: 12/31/18 11:37 Attending physician: Harrison Hardin MD Time Spent in preparation of Discharge (in minutes): 35 Hospital Course - Lab Results Lab Results: Micro Results 12/31/18 10:45 Blood Blood Culture - Final NO GROWTH AFTER 5 DAYS 12/31/18 10:45 Blood Gram Stain - Final TEST NOT PERFORMED 12/31/18 11:15 Blood Blood Culture - Final NO GROWTH AFTER 5 DAYS 12/31/18 11:15 Blood Gram Stain - Final TEST NOT PERFORMED Most Recent Lab Values WBC 5.8 K/uL (4.8-10.8) D 12/31/18 11:12 RBC 4.33 Mil/uL (3.80-5.20) 12/31/18 11:12 Hgb 12.3 g/dL (11.0-16.0) 12/31/18 11:12 Hct 37.0 % (34.0-47.0) 12/31/18 11:12 MCV 85.5 fL (81.0-99.0) 12/31/18 11:12 MCH 28.4 pg (27.0-31.0) 12/31/18 11:12 MCHC 33.3 g/dL (33.0-37.0) 12/31/18 11:12 RDW 15.5 % (11.5-14.5) H 12/31/18 11:12 Plt Count 57 K/uL (130-400) L 12/31/18 11:12 MPV 11.0 fL (7.2-11.7) 12/31/18 11:12 Neut % (Auto) 76.5 % (50.0-75.0) H 12/31/18 11:12 Lymph % (Auto) 13.3 % (20.0-40.0) L 12/31/18 11:12 [place] % (Auto) 9.9 % (0.0-10.0) 12/31/18 11:12 Eos % (Auto) 0.0 % (0.0-4.0) 12/31/18 11:12 Baso % (Auto) 0.3 % (0.0-2.0) 12/31/18 11:12 Neut # (Auto) 4.4 K/uL (1.8-7.0) 12/31/18 11:12 Lymph # (Auto) 0.8 K/uL (1.0-4.3) L 12/31/18 11:12 [place] # (Auto) 0.6 K/uL (0.0-0.8) 12/31/18 11:12 Eos # (Auto) 0.0 K/uL (0.0-0.7) 12/31/18 11:12 Baso # (Auto) 0.0 K/uL (0.0-0.2) 12/31/18 11:12 ESR 73 mm/hr (0-20) H 12/31/18 11:12 PT 12.5 SECONDS (9.7-12.2) H 12/31/18 15:04 INR 1.1 12/31/18 15:04 APTT 105.2 SECONDS (21-34) H* D 12/31/18 17:35 Sodium 135 mmol/L (132-148) 12/31/18 11:12 Potassium 4.4 mmol/L (3.6-5.2) 12/31/18 11:12 Chloride 104 mmol/L (98-107) 12/31/18 11:12 Carbon Dioxide 21 mmol/L (22-30) L 12/31/18 11:12 Anion Gap 15 (10-20) 12/31/18 11:12 BUN 19 mg/dL (7-17) H 12/31/18 11:12 Creatinine 0.6 mg/dL (0.7-1.2) L 12/31/18 11:12 Est GFR ( Amer) > 60 12/31/18 11:12 Est GFR (Non-Af Amer) > 60 12/31/18 11:12 POC Glucose (mg/dL) 218 mg/dL (65-110) H 01/05/19 16:06 Random Glucose 195 mg/dL (65-105) H D 12/31/18 11:12 Calcium 9.8 mg/dl (8.6-10.4) 12/31/18 11:12 Total Bilirubin 0.9 mg/dL (0.2-1.3) 12/31/18 11:12 AST 27 U/L (14-36) 12/31/18 11:12 ALT 14 U/L (9-52) 12/31/18 11:12 Alkaline Phosphatase 41 U/L (38-126) 12/31/18 11:12 Total Protein 7.6 g/dL (6.3-8.3) 12/31/18 11:12 Albumin 4.1 g/dL (3.5-5.0) 12/31/18 11:12 Globulin 3.4 gm/dL (2.2-3.9) 12/31/18 11:12 Albumin/Globulin Ratio 1.2 (1.0-2.1) 12/31/18 11:12 Urine Color Yellow (YELLOW) 01/02/19 08:34 Urine Clarity Hazy (Clear) 01/02/19 08:34 Urine pH 5.0 (5.0-8.0) 01/02/19 08:34 Ur Specific [place] 1.025 (1.003-1.030) 01/02/19 08:34 Urine Protein Negative mg/dL (NEGATIVE) 01/02/19 08:34 Urine Glucose (UA) 3+ mg/dL (Normal) H 01/02/19 08:34 Urine Ketones Negative mg/dL (NEGATIVE) 01/02/19 08:34 Urine Blood 1+ (NEGATIVE) H 01/02/19 08:34 Urine Nitrate Negative (NEGATIVE) 01/02/19 08:34 Urine Bilirubin Negative (NEGATIVE) 01/02/19 08:34 Urine Urobilinogen Normal mg/dL (0.2-1.0) 01/02/19 08:34 Ur Leukocyte Esterase 1+ [place]/uL (Negative) H 01/02/19 08:34 Urine WBC (Auto) 58 /hpf (0-5) H 01/02/19 08:34 Urine RBC (Auto) 8 /hpf (0-3) H 01/02/19 08:34 Ur Squamous Epith Cells 4 /hpf (0-5) 01/02/19 08:34 Urine Bacteria Occ (<OCC) H 01/02/19 08:34 Urine Yeast (Budding) Few /hpf (NEGATIVE) H 01/02/19 08:34 Discharge Plan - Discharge Medications Prescriptions: Rivaroxaban [Xarelto] 15 mg PO BID 30 Days tab - Follow Up Plan Condition: GOOD Disposition: HOME/ ROUTINE Instructions: Rivaroxaban, Peripherally-Inserted Central Catheter (DC), Cefepime, Cellulitis (DC), Deep Venous Thrombosis (DC) Additional Instructions: DC HOME WITH PICC LINE FOLLOW UP WITH DR HARDIN IN HIS OFFICE CONTINUE HOME MEDICATION ORDER NEW PRESCRIPTION GIVEN XARELTO ACTIVITY TOLERATED CALL DR Bambi BAEZ OR GO TO THE EMERGENCY ROOM IF SYMPTOM RETURN OR WORSENING SEGUIRSE CON EL DR HARDIN EN PATEL OFICINA CONTINUAR MEDICAMENTOS EN CASA STEFANY ORDEN NUEVA PRESCRIPCIN KATHERINE XARELTO LA ACTIVIDAD STEFANY TOLERADA LLAME AL DR Bambi BAEZ O VAYA A LA PATRIC DE EMERGENCIA SI EL SNTOMA DEVUELVE O CONSIDERA Referrals: Harrison Hardin MD [Staff Provider] -
--- NOTE | 2019-01-06 06:54 | DS ---
DISCHARGE DIAGNOSES: 1. Malignant otitis externa. 2. Hypertension. 3. Type 2 diabetes. 4. Hyperlipidemia. HISTORY OF PRESENT ILLNESS: This is an 83-year-old female with history of type 2 diabetes, hypertension, hyperlipidemia, was compliant with diet, medication and followup. The patient also has intravenous antibiotics for malignant otitis externa for next five weeks. While the patient was discharged a week ago, she developed deep venous thrombosis in right upper extremity and now she is on Xarelto. The patient is on Xarelto and she is doing well. The patient underwent PICC line and she is for discharge. She will receive five weeks of antibiotic for malignant otitis externa. PHYSICAL EXAMINATION: VITAL SIGNS: Blood pressure 127/67, pulse 81, respiratory rate 20, temperature 98.2. LUNGS: Clear. CARDIOVASCULAR SYSTEM: S1, S2. Regular. ABDOMEN: Soft, nontender. Bowel sound are positive. PLAN: Discharge the patient home. Outpatient followup. Intravenous antibiotics. Continue Xarelto for three to six months. Harrison Hardin MD
== END 2019-01-05 18:58 | disposition home or self-care (01) | DRG 315 ==
LOC: C.ER 09:50 → C.9E 11:37 → C.5S 13:54
PROVIDERS: ADMIT Internal Medicine; ATTEND Internal Medicine
PROC: 02PYX3Z Removal of Infusion Device from Great Vessel, External Approach (ICD-10-PCS; principal; 2019-01-05)
PROC: 02HV33Z Insertion of Infusion Device into Superior Vena Cava, Percutaneous Approach (ICD-10-PCS; 2019-01-05)
DX: T80.219A Unspecified infection due to central venous catheter, initial encounter (principal); I82.621 Acute embolism and thrombosis of deep veins of right upper extremity; H60.20 Malignant otitis externa, unspecified ear; I82.A19 Acute embolism and thrombosis of unspecified axillary vein; I82.B11 Acute embolism and thrombosis of right subclavian vein; L03.113 Cellulitis of right upper limb; I10 Essential (primary) hypertension; H66.90 Otitis media, unspecified, unspecified ear; E78.5 Hyperlipidemia, unspecified; E11.9 Type 2 diabetes mellitus without complications; J45.909 Unspecified asthma, uncomplicated; Z79.01 Long term (current) use of anticoagulants; Z79.2 Long term (current) use of antibiotics